=== PATIENT | male | born 1945 | race Caucasian/White ===

== ENCOUNTER 2016-06-19 02:17 | Emergency (ER) | payer MEDICARE, OTHER ==
[2015-09-25 21:19] VITALS: BMI 25.7
[~2016-06-19 02:17] MED LIST: ASPIRIN81 MG PO; CLOBETASOL PROP25 ML TOPICAL; COREG6.25 MG PO; CYCLOBENZAPRINE10 MG PO; CYMBALTA60 MG PO; IBUPROFEN800 MG PO; NEURONTIN600 MG PO; PLAVIX75 MG PO; PROVIGIL200 MG PO; RESTORIL15 MG PO; TOFRANIL25 MG PO; WELLBUTRIN100 MG PO
== END 2016-06-19 02:56 | disposition home or self-care (01) ==
LOC: D.ER 02:17
DX: S30.0XXA Contusion of lower back and pelvis, initial encounter (principal); W19.XXXA Unspecified fall, initial encounter; Y93.89 Activity, other specified; Y92.89 Other specified places as the place of occurrence of the external cause; G47.30 Sleep apnea, unspecified

== ENCOUNTER 2016-10-25 14:05 | Emergency (ER) | payer MEDICARE, OTHER ==
[2015-09-25 21:19] VITALS: BMI 25.7
== END 2016-10-25 15:13 | disposition home or self-care (01) ==
LOC: D.ER 14:05
DX: M54.40 Lumbago with sciatica, unspecified side (principal); G89.29 Other chronic pain